=== PATIENT | female | born 1950 | race American Indian/Alaskan Native ===

== ENCOUNTER 2020-06-27 14:05 | Emergency (ER) | payer MEDICARE ==
--- NOTE | 2020-06-27 14:31 | Emergency Department Report ---
Blank Doc - Documentation Documentation: Patient is 70 years old female, hospice patient with history of brain tumor, c hronic respiratory failure on ventilation. Patient brought to the emergency room via EMS from her hospice facility after family requesting that patient be transferred to ICU. EMS initially went to the ICU and then came down to the emergency room. I examined the patient, patient does not have a pulse with fixed and dilated pupils. EMS stated that last time they felt the pulse was when patient in the truck. Patient showed no spontaneous breathing, no heart tone. Patient pronounced at 1:55 PM. No family available at this moment.
== END 2020-06-27 18:33 ==
LOC: ED 14:05
DX: J96.00 Acute respiratory failure, unspecified whether with hypoxia or hypercapnia (principal); Z53.21 Procedure and treatment not carried out due to patient leaving prior to being seen by health care provider